=== PATIENT | female | born 1980 | race Caucasian/White ===

== ENCOUNTER 2020-04-09 16:40 | Emergency (ER) | payer OTHER ==
[~2020-04-09] VITALS: Ht 160 cm; Wt 90.0 kg
[2020-04-09 16:40] VITALS: BP 152/87
[2020-04-09] MEDS ORDERED: IBUPROFEN 600 MG TABLET. PO ONE ×2 (17:00→17:03)
[2020-04-09] MEDS ORDERED: ACETAMINOPHEN 500 MG TABLET PO ONE (17:00)
--- NOTE | 2020-04-09 17:19 | RAD ---
Examination: 3 views of the left ankle HISTORY: History of left ankle injury COMPARISON: None available FINDINGS: The alignment of the ankle mortise grossly appears unremarkable. There is no acute fracture or dislocation identified. IMPRESSION: No acute osseous findings. Electronically signed by: Howie Martinez MD (04/09/2020 5:16 PM) [id number]
[2020-04-09] MEDS ORDERED: NAPR500T8 PO (17:24)
--- NOTE | 2020-04-09 17:25 | PHYS DOC ---
Past History Past Medical History: Hypertension, Hypothyroid Past Surgical History: Hysterectomy Alcohol Use: None General Adult EDM: Chief Complaint: FOOT INJURY PAIN HPI: HPI: Patient is a 39-year-old female who presents with left ankle pain. She injured her ankle a few days ago. She states she twisted it while walking. It is been swollen and painful since that time. She is kept an Allen wrap on it but this is not kept the pain down. [] Review of Systems: Review of Systems: Constitutional: Denies fever or chills Eyes: Denies change in visual acuity HENT: Denies nasal congestion or sore throat Respiratory: Denies cough or shortness of breath Cardiovascular: Denies chest pain or edema GI: Denies abdominal pain, nausea, vomiting, bloody stools or diarrhea : Denies dysuria Musculoskeletal: Per HPI Integument: Denies rash Neurologic: Denies headache, focal weakness or sensory changes Endocrine: Denies polyuria or polydipsia Lymphatic: Denies swollen glands Psychiatric: Denies depression or anxiety Heart Score: Risk Factors: Risk Factors: DM, Current or recent (<one month) smoker, HTN, HLP, family history of CAD, obesity. Risk Scores: Score 0 - 3: 2.5% MACE over next 6 weeks - Discharge Home Score 4 - 6: 20.3% MACE over next 6 weeks - Admit for Clinical Observation Score 7 - 10: 72.7% MACE over next 6 weeks - Early Invasive Strategies Current Medications: Current Meds: Current Medications Medications (Trade) Dose Ordered Sig/Nohemi Start Time Stop Time Status Last Admin Dose Admin Acetaminophen (Tylenol) 1,000 mg 1X ONCE 04/09/20 17:00 04/09/20 17:02 DC Ibuprofen (Motrin) 600 mg STK-MED ONCE 04/09/20 17:03 04/09/20 17:04 DC Allergies: Allergies: Allergies Coded Allergies Type Severity Reaction Last Updated Verified nitrofurantoin Allergy Unknown 04/09/20 Yes Physical Exam: PE: Constitutional: Well developed, well nourished, no acute distress, non-toxic appearance. [] Cardiovascular:Heart rate regular rhythm, no murmur [] Lungs & Thorax: Bilateral breath sounds clear to auscultation [] Abdomen: Bowel sounds normal, soft, no tenderness, no masses, no pulsatile masses. [] Skin: Warm, dry, no erythema, no rash. [] Back: No tenderness, no CVA tenderness. [] Extremities: Mild tender to palp over the lateral malleolus minimal swelling no ecchymosis no obvious deformity [] Neurologic: Alert and oriented X 3, normal motor function, normal sensory function, no focal deficits noted. [] Psychologic anxious [] Current Patient Data: Vital Signs: Vital Signs Date Time Temp Pulse Resp B/P (MAP) Pulse Ox O2 Delivery O2 Flow Rate FiO2 04/09/20 16:40 100.9 85 16 152/87 (108) 100 Room Air EKG: EKG: [] Radiology/Procedures: Radiology/Procedures: []PROCEDURE: CHEST AP ONLY CHEST AP ONLY History: Shortness of air Comparison: 01/18/2020 Findings: AP portable view of the chest is submitted. There is a small left pleural effusion, also very small right pleural effusion. There is bibasilar airspace opacity adjacent to the effusions, left greater than right. No pneumothorax is identified. Catheter projecting over the right inferior neck is believed to be external to patient. Pericardial cardiac silhouette is somewhat enlarged although unchanged. Impression: 1. There are left greater than right pleural effusions with adjacent bibasilar airspace opacity which may be due to edema/atelectasis although infiltrates not excluded. Constellation of findings could be due to left ventricular failure. Course & Med Decision Making: Course & Med Decision Making Pertinent Labs and Imaging studies reviewed. (See chart for details) [] Dragon Disclaimer: Dragon Disclaimer: This electronic medical record was generated, in whole or in part, using a voice recognition dictation system. Departure Departure: Impression: Primary Impression: Left ankle sprain Qualified Codes: S93.402A - Sprain of unspecified ligament of left ankle, initial encounter Disposition: HOME/RESIDENCE PRIOR TO ADM Condition: STABLE Referrals: FOSTER MENDEZ MD (PCP) Patient Instructions: Ankle Sprain, Ankle Sprain, Acute, with Phase I Rehab- [facility], Ankle Sprain, Acute, with Phase II Rehab-[facility] Scripts Naproxen (NAPROXEN) 500 Mg Tablet. 1 TAB PO Q12HR PRN for PAIN, #60 TAB 1 Refill Prov: JOSE JUAN WHITTEN DO 04/09/20 JOSE JUAN WHITTEN DO April 09, 2020 17:25
== END 2020-04-09 17:30 | disposition home or self-care (01) ==
LOC: ER 16:40
DX: S93.402A Sprain of unspecified ligament of left ankle, initial encounter (principal); I10 Essential (primary) hypertension; E03.9 Hypothyroidism, unspecified; Z88.8 Allergy status to other drugs, medicaments and biological substances; X50.1XXA Overexertion from prolonged static or awkward postures, initial encounter; Y93.01 Activity, walking, marching and hiking; Y92.89 Other specified places as the place of occurrence of the external cause; Y99.8 Other external cause status
CPT/HCPCS: 73610; 99283